=== PATIENT | male | born 1930 | race Caucasian/White ===

== ENCOUNTER 2017-03-22 17:37 | Inpatient (IN) | payer MEDICARE, OTHER ==
[~2017-03-22] VITALS: Ht 167.6 cm; Wt 90.4 kg
--- NOTE | ~2017-03-22 | EKG ---
PATIENT: WES MCMANUS UNIT #: [id number] Ventricular Rate: 93 BPM Atrial Rate: 93 BPM P-R Interval: 156 ms QRS Duration: 112 ms Q-T Interval: 384 ms QTC Calculation(Bezet): 477 ms P [place]: 23 degrees Calculated R [place]: -40 degrees Calculated T [place]: 92 degrees Diagnosis Line: Sinus rhythm with Premature atrial complexes Diagnosis Line: Left axis deviation Diagnosis Line: Incomplete left bundle branch block Diagnosis Line: Abnormal QRS-T angle, consider primary T wave Diagnosis Line: abnormality Diagnosis Line: Abnormal ECG Diagnosis Line: No previous ECGs available Diagnosis Line: Confirmed by VERENA LANDA MD ([id number]) on 03/23/2017 Diagnosis Line: 4:50:56 PM INTERPRETING MD: SYEDA BECERRA
--- NOTE | ~2017-03-22 | HP ---
Unit #: [id number] #: [id number] Patient: WES MCMANUS [id number] [address] [place], [place] [address] [id number] I MR#: [id number] NAME: WES MCMANUS ROOM: 462 Age: 87 Sex: M Admission Date: 03/22/2017 : 1930 Attending Physician: Marino Zhang M.D. Primary Care Physician: Ian Sanchez M.D. HISTORY AND PHYSICAL ADMISSION DIAGNOSES 1. GI bleed. 2. Diabetes. 3. History of prostate cancer. 4. History of previous GI bleed. HISTORY OF PRESENT ILLNESS Mr. Mcmanus is an 87-year-old gentleman, a patient of Dr. Ian Sanchez, who came to the emergency room with complaints of bloody stools since yesterday. The patient denies any dyspnea, shortness of air, lightheadedness, syncope. Denies any fever, chills. Denies any chest pain. Denies any headache or dizziness. Denies any abdominal pain, nausea or vomiting. States that he has been having these bloody stools for a couple days. REVIEW OF SYSTEMS A 12-point review of systems on this patient is basically negative except as above. The patient does have a history of previous GI bleed. PAST MEDICAL HISTORY Past medical history on this gentleman significant for history of, again, GI bleed, diabetes, obesity, prostate cancer. PAST SURGICAL HISTORY Significant for appendectomy and vasectomy. HOME MEDICATIONS He was taking a baby aspirin, metformin, trazodone, latanoprost, vitamin B, vitamin C, calcium with vitamin D, folic acid and garlic. ALLERGIES No known drug allergies. SOCIAL HISTORY No history of tobacco, alcohol or illicit drugs. FAMILY HISTORY Family history is unremarkable. PHYSICAL EXAMINATION GENERAL: The patient is an 87-year-old gentleman in no acute distress. VITAL SIGNS: BP 132/63, heart rate 82, respirations 17, temperature 98.3. HEENT: Head is atraumatic. Pupils are equal, round and reactive to light. Extraocular muscles intact. Oropharynx is clear. Unit #: [id number] #: [id number] Patient: WES MCMANUS NECK: Neck is supple. No masses. No JVD. No bruit. RESPIRATORY: Chest is clear to auscultation bilaterally. CARDIOVASCULAR: S1, S2. No murmurs. ABDOMEN: Abdomen is soft, nontender, nondistended. EXTREMITIES: Lower extremities have no cyanosis, clubbing or edema. NEUROLOGIC: Patient grossly intact. No focal deficits. LABS AND DIAGNOSTICS LABORATORY (from yesterday): H and H 11.3 and 33.7, white count 6.8. Chemistry - BUN and creatinine 21 and 1.1, blood glucose 124. ASSESSMENT AND PLAN 1. GI bleed. Started on IV PPI. Will check a STAT CBC. If hemoglobin drops more than 2 points, will transfer to ICU for closer monitoring. Discussed with Dr. Zhang, who is also evaluating the patient, and he plans to do an EGD first and then follow that with C-scope. 2. Diabetes. Will hold metformin. Treat with low sliding scale. 3. History of prostate cancer in the past. 4. GI and DVT prophylaxis. Continue PPI. Put on SCDs. Dictated by Christie Arora/tima TD: 03/24/2017 10:08 JOB #: [id number] HISTORY AND PHYSICAL Page 1 of 1 X Dannie Lucas MD X HISTORY AND PHYSICAL
--- NOTE | ~2017-03-22 | DS ---
Unit #: [id number] #: [id number] Patient: WES MCMANUS [id number] [address] [place], [place] [address] [id number] I MR#: [id number] NAME: WES MCMANUS ROOM: 462 Age: 87 Sex: M Admission Date: 03/22/2017 : 1930 Discharge Date: 03/26/2017 Attending Physician: Marino Zhang M.D. Primary Care Physician: Ian Sanchez M.D. DISCHARGE SUMMARY FINAL DIAGNOSES 1. Gastrointestinal bleed. 2. Anemia secondary to above. 3. Status post esophagogastroduodenoscopy, which shows mild gastritis. 4. Status post colonoscopy, which shows rectal arteriovenous malformation, status post cauterization by Dr. Zhang, and also showed diverticulosis. 5. Diabetes mellitus type 2. 6. History of prostate cancer. DISCHARGE MEDICATIONS 1. Protonix 40 mg p.o. daily. 2. Metformin 500 mg t.i.d. 3. Latanoprost drops 2.5 mL both eyes at bedtime. 4. Terazosin 20 mg each evening. 5. Garlic 1 capsule daily. 6. Aspirin 81 mg daily. 7. Calcium and vitamin D 1 tablet daily. 8. Folic acid 1 mg daily. 9. Vitamin B6 - 50 mg daily. 10. Thiamine 50 mg daily. 11. Vitamin C 60 mg daily. DIAGNOSTIC STUDIES LAB WORKUP ON DISCHARGE: Sodium 139, potassium 3.9, chloride 112, BUN 13, creatinine 1.3, calcium 7.7. CBC shows WBC 7.3, hemoglobin 7.4, hematocrit 32.3, platelet count of 204. HOSPITAL COURSE Mr. Wes Mcmanus is an 87-year-old male who was admitted by my colleague, Dr. Lucas, with GI bleed. The patient was admitted to med/surg unit. Dr. Zhang was consulted. The patient had a procedure done, which included EGD and colonoscopy, and findings were normal esophagus, mild gastritis, small lesion in the duodenal bulb, possible hypertrophic papilla versus polyp - left alone at this time, normal descending duodenum. The patient did have colonoscopy, and the findings of colonoscopy were several AVMs seen in the rectum that were cauterized. There was some active oozing from that area. The rest of the colon exam was no other bleeding site. There was extensive diverticulosis, and the patient also has internal hemorrhoid. The patient is doing well. The patient will receive 1 units of packed RBCs transfusion before discharge. He will be discharged on Protonix. The patient is doing well and wants to go home. Unit #: [id number] #: [id number] Patient: WES MCMANUS DISCHARGE PHYSICAL EXAMINATION VITAL SIGNS: Blood pressure is 98/65, respiratory rate 16, pulse 93, temperature 98. HEAD: Normocephalic. RESPIRATORY: Chest has fair air entry. CVS: Regular rhythm. ABDOMEN: Soft. No tenderness. DISCHARGE INSTRUCTIONS 1. The patient will be discharged home in stable condition after one unit of packed RBCs transfusion. 2. Follow up with primary care provider in 1 week. 3. CBC in 1 week. 4. Follow up with Dr. Zhang in 4 weeks. Dictated by... Christie Garzon/tima TD: 03/28/2017 08:52 JOB #: [id number] DISCHARGE SUMMARY Page 1 of 1 X Nina Busch MD X DISCHARGE SUMMARY
--- NOTE | ~2017-03-22 | OR ---
Unit #: [id number] #: [id number] Patient: WES MCMANUS [id number] [facility]. [place], [place] [address] [id number] I MR#: [id number] NAME: WES MCMANUS ROOM: 462 Date of Procedure: 03/25/2017 Admission Date: 03/22/2017 Surgeon: Marino Zhang M.D. : 1930 Attending Physician: Marino Zhang M.D. Primary Care Physician: Ian Sanchez M.D. OPERATIVE REPORT PROCEDURES PERFORMED Esophagogastroduodenoscopy to descending duodenum, colonoscopy with APC. INDICATIONS An 87-year-old gentleman, presented with significant GI bleeding, difficult to assess upper versus lower; anemia of acute blood loss; undergoing evaluation with upper endoscopy and colonoscopy. MEDICATIONS Versed 5 mg, fentanyl 12.5 mg IV. POSTOPERATIVE FINDINGS 1. Normal esophagus. 2. Mild gastritis. 3. Small lesion in the duodenal bulb, possible hypertrophied papilla versus polyp left alone at this time. 4. Normal descending duodenum. 5. Several AVMs seen in the rectum that were cauterized. There was some active oozing from this area. 6. Rest of the colon exam to cecum shows no other bleeding lesions. 7. Extensive diverticulosis. 8. Internal hemorrhoids. PLAN Follow up in the hospital for any continued bleeding or drop in hemoglobin and hematocrit. DESCRIPTION OF PROCEDURE The patient was explained of the procedure, risks, and benefits along with risks and benefits of conscious sedation. He was brought to the endoscopy. Versed and fentanyl were used. Scope was passed down the mouth and esophagus, stomach, duodenum, to distal duodenum. Findings as described. No biopsies taken. Gently, I pulled it out of the patient's mouth. He tolerated this part very well. At this time, he was turned around and repositioned for colonoscopy. Rectal exam was done, which was normal. Colonoscope was lubricated, passed through the rectum, advanced under direct vision all the way to the cecum. Cecum was identified by ileocecal valve and appendiceal orifice. Prep was adequate with extensive lavaging. Extensive diverticulosis was seen, much more so on the left colon. Rectum shows some oozing of blood Unit #: [id number] #: [id number] Patient: WES MCMANUS and fresh bleeding from multiple AVMs right above the dentate line. APC cautery was carried out successfully. Gently, the scope was pulled out. He tolerated it well. No major complications were seen. Dictated by... Christie Rojas/yadi TD: 03/25/2017 12:19 JOB #: [id number] CC: Marino Zhang M.D. OPERATIVE REPORT Page 1 of 1 X Marino Zhang MD X PROCEDURE OPERATIVE NOTE
[~2017-03-22 17:37] MED LIST: ASPIRIN81 M2 PO; CALCIUM + D 6001 TA1 PO; FOLIC ACID1 MG PO; GARLIC1 CAP PO; LATANOPROST2.5 ML OP; METFORMIN HCL500 M1 PO; PROTONIX PO; TERAZOSIN HCL10 MG PO; VITAMIN B-150 MG PO; VITAMIN B650 M1 PO; VITAMIN C60 MG PO; VITAMIN E100 UNIT PO
[2017-03-22 18:45] LABS: BASOPHIL# 0.1 X10e3 (0-0.3); BASOPHIL% 0.9 % (0-2.5); EOSINOPHIL# 0.1 X10e3 (0-0.7); EOSINOPHIL% 2.1 % (0.0-7.0); HEMATOCRIT 33.7 % (38.0-50.0); HEMOGLOBIN 11.3 gm/dL (13.0-16.0); LYMPHOCYTE# 0.7 X10e3 (1.0-3.5); LYMPHOCYTE% 10.6 % (17.0-45.0); MEAN CELL VOLUME 92.2 FL (83-96); MEAN CORPUSCULAR HEMOGLOBIN 30.8 PG (28-34); MEAN CORPUSCULAR HGB CONC 33.4 g/dL (30-36); MEAN PLATELET VOLUME 7.8 FL (6.5-11.5); MONOCYTE# 0.6 X10e3 (0-1.0); MONOCYTE% 8.6 % (3.0-12.0); NEUTROPHIL# 5.3 X10e3 (1.5-7.1); NEUTROPHIL% 77.8 % (40-75); PLATELET COUNT 297 X10e3 (140-420); RED BLOOD COUNT 3.66 X10e (3.90-5.60); RED CELL DISTRIBUTION WIDTH 14.8 % (11.0-15.5); WHITE BLOOD COUNT 6.8 X10e3 (4.0-10.5)
[2017-03-22 18:47] LABS: DIFF IND NO
[2017-03-22 18:56] LABS: PROTHROMBIN TIME (PATIENT) 11.1 SECONDS (10.0-11.7)
[2017-03-22 19:06] LABS: ALBUMIN SERUM 3.9 g/dL (3.5-5.0); ALKALINE PHOSPHATASE 73 U/L (32-92); ALT (SGPT) 12 U/L (10-40); AST (SGOT) 16 U/L (10-42); BILIRUBIN,TOTAL 0.7 mg/dL (0.2-2.0); BLOOD UREA NITROGEN 21 mg/dL (9-23); BUN/CREATININE RATIO 19.09; CALCIUM SERUM 8.9 mg/dL (8.4-10.2); CARBON DIOXIDE 25 mmol/L (22-31); CHLORIDE 103 mmol/L (100-111); CREATININE SERUM 1.1 mg/dL (0.6-1.4); GLOM FILT RATE Estimated 59.6 mL/min (>60); GLUCOSE FASTING 124 mg/dL (70-110); LIPASE 12 U/L (22-51); POTASSIUM 4.2 mmol/L (3.5-5.1); SODIUM 140 mmol/L (135-145)
[2017-03-22 19:07] LABS: BILIRUBIN, DIRECT <0.1 mg/dL (0.0-0.2); BILIRUBIN,INDIRECT 0.6 mg/dL (0.0-0.9)
[2017-03-23 20:00] LABS: BASOPHIL% 0.4 % (0-2.5); EOSINOPHIL# 0.1 X10e3 (0-0.7); EOSINOPHIL% 1.5 % (0.0-7.0); HEMATOCRIT 26.5 % (38.0-50.0); LYMPHOCYTE# 0.9 X10e3 (1.0-3.5); LYMPHOCYTE% 12.9 % (17.0-45.0); MEAN CELL VOLUME 92.2 FL (83-96); MEAN CORPUSCULAR HEMOGLOBIN 31.7 PG (28-34); MEAN CORPUSCULAR HGB CONC 34.4 g/dL (30-36); MEAN PLATELET VOLUME 7.4 FL (6.5-11.5); MONOCYTE# 0.7 X10e3 (0-1.0); NEUTROPHIL# 4.9 X10e3 (1.5-7.1); NEUTROPHIL% 74.2 % (40-75); PLATELET COUNT 251 X10e3 (140-420); RED BLOOD COUNT 2.88 X10e (3.90-5.60); RED CELL DISTRIBUTION WIDTH 14.4 % (11.0-15.5); WHITE BLOOD COUNT 6.7 X10e3 (4.0-10.5)
[2017-03-23 20:03] LABS: DIFF IND NO; HEMOGLOBIN 9.1 gm/dL (13.0-16.0)
[2017-03-24 03:40] LABS: BASOPHIL% 0.4 % (0-2.5); EOSINOPHIL# 0.1 X10e3 (0-0.7); EOSINOPHIL% 2.1 % (0.0-7.0); HEMATOCRIT 25.5 % (38.0-50.0); HEMOGLOBIN 8.4 gm/dL (13.0-16.0); LYMPHOCYTE# 0.9 X10e3 (1.0-3.5); LYMPHOCYTE% 14.4 % (17.0-45.0); MEAN CELL VOLUME 92.9 FL (83-96); MEAN CORPUSCULAR HEMOGLOBIN 30.6 PG (28-34); MEAN CORPUSCULAR HGB CONC 32.9 g/dL (30-36); MONOCYTE# 0.7 X10e3 (0-1.0); NEUTROPHIL# 4.3 X10e3 (1.5-7.1); NEUTROPHIL% 72.1 % (40-75); PLATELET COUNT 236 X10e3 (140-420); RED BLOOD COUNT 2.75 X10e (3.90-5.60); RED CELL DISTRIBUTION WIDTH 14.4 % (11.0-15.5)
[2017-03-24 03:50] LABS: DIFF IND NO
[2017-03-24 04:03] LABS: ALBUMIN SERUM 3.1 g/dL (3.5-5.0); BILIRUBIN,TOTAL 0.4 mg/dL (0.2-2.0); BUN/CREATININE RATIO 17.5; CREATININE SERUM 1.2 mg/dL (0.6-1.4); GLOM FILT RATE Estimated 53.7 mL/min (>60); POTASSIUM 3.6 mmol/L (3.5-5.1); PROTEIN TOTAL SERUM 5.8 g/dL (6.0-8.3)
[2017-03-24 16:45] LABS: HEMATOCRIT 29.7 % (38.0-50.0); HEMOGLOBIN 9.8 gm/dL (13.0-16.0)
[2017-03-25 03:32] LABS: BASOPHIL% 0.3 % (0-2.5); EOSINOPHIL# 0.1 X10e3 (0-0.7); EOSINOPHIL% 1.7 % (0.0-7.0); HEMATOCRIT 25.6 % (38.0-50.0); HEMOGLOBIN 8.5 gm/dL (13.0-16.0); LYMPHOCYTE# 0.8 X10e3 (1.0-3.5); LYMPHOCYTE% 11.9 % (17.0-45.0); MEAN CELL VOLUME 93.9 FL (83-96); MEAN CORPUSCULAR HEMOGLOBIN 31.3 PG (28-34); MEAN CORPUSCULAR HGB CONC 33.4 g/dL (30-36); MEAN PLATELET VOLUME 7.9 FL (6.5-11.5); MONOCYTE# 0.9 X10e3 (0-1.0); MONOCYTE% 12.5 % (3.0-12.0); NEUTROPHIL% 73.6 % (40-75); PLATELET COUNT 221 X10e3 (140-420); RED BLOOD COUNT 2.73 X10e (3.90-5.60); RED CELL DISTRIBUTION WIDTH 14.6 % (11.0-15.5); WHITE BLOOD COUNT 6.8 X10e3 (4.0-10.5)
[2017-03-25 03:33] LABS: DIFF IND NO
[2017-03-26 07:44] LABS: BASOPHIL% 0.3 % (0-2.5); EOSINOPHIL% 0.7 % (0.0-7.0); HEMATOCRIT 22.3 % (38.0-50.0); HEMOGLOBIN 7.4 gm/dL (13.0-16.0); LYMPHOCYTE# 0.7 X10e3 (1.0-3.5); LYMPHOCYTE% 9.9 % (17.0-45.0); MEAN CELL VOLUME 93.7 FL (83-96); MEAN CORPUSCULAR HGB CONC 33.1 g/dL (30-36); MEAN PLATELET VOLUME 7.7 FL (6.5-11.5); MONOCYTE# 1.1 X10e3 (0-1.0); NEUTROPHIL# 5.4 X10e3 (1.5-7.1); NEUTROPHIL% 74.1 % (40-75); PLATELET COUNT 204 X10e3 (140-420); RED BLOOD COUNT 2.38 X10e (3.90-5.60); RED CELL DISTRIBUTION WIDTH 14.6 % (11.0-15.5); WHITE BLOOD COUNT 7.3 X10e3 (4.0-10.5)
[2017-03-26 07:45] LABS: DIFF IND YES
[2017-03-26 08:10] LABS: ANISOCYTOSIS SL; PLATELET ESTIMATE NORMAL (NORMAL)
[2017-03-26 08:23] LABS: ALBUMIN SERUM 2.6 g/dL (3.5-5.0); BILIRUBIN,TOTAL 0.6 mg/dL (0.2-2.0); CALCIUM SERUM 7.7 mg/dL (8.4-10.2); CREATININE SERUM 1.3 mg/dL (0.6-1.4); GLOM FILT RATE Estimated 48.7 mL/min (>60); POTASSIUM 3.9 mmol/L (3.5-5.1); PROTEIN TOTAL SERUM 4.9 g/dL (6.0-8.3)
[2017-03-26] MEDS ORDERED: PROTONIX PO (16:57)
== END 2017-03-26 19:58 | disposition home or self-care (01) | DRG 378 ==
LOC: CED 17:37 → C4C 19:40 → CEDOF 20:23 → CED 20:23 → CEDOF 22:55 → C4C 22:55 → CED 23:44 → C4C 23:44
PROVIDERS: Internal Medicine; Physician Assistant Medical
PROC: 0D5P8ZZ Destruction of Rectum, Via Natural or Artificial Opening Endoscopic (ICD-10-PCS; principal; 2017-03-25 06:43)
PROC: 0DJ08ZZ Inspection of Upper Intestinal Tract, Via Natural or Artificial Opening Endoscopic (ICD-10-PCS; 2017-03-25 06:43)
PROC: 30233N1 Transfusion of Nonautologous Red Blood Cells into Peripheral Vein, Percutaneous Approach (ICD-10-PCS; 2017-03-26)
DX: K55.21 Angiodysplasia of colon with hemorrhage (principal); D62 Acute posthemorrhagic anemia; E11.9 Type 2 diabetes mellitus without complications; K29.70 Gastritis, unspecified, without bleeding; K57.90 Diverticulosis of intestine, part unspecified, without perforation or abscess without bleeding; Z85.46 Personal history of malignant neoplasm of prostate; K64.8 Other hemorrhoids; E66.9 Obesity, unspecified; Z79.82 Long term (current) use of aspirin; Z79.84 Long term (current) use of oral hypoglycemic drugs
CPT/HCPCS: 36415; 80048; 80053; 80076; 82947; 83690; 85014; 85018; 85025; 85610; 85730; 86850; 86900; 86901; 86923; 93005; 99284; C9113; J1815; J2250; J3010; P9016

== ENCOUNTER 2017-03-27 12:52 | Observation (INO) | payer MEDICARE, OTHER ==
[~2017-03-27] VITALS: Ht 167.6 cm; Wt 80.7 kg
--- NOTE | ~2017-03-27 | CR63 ---
[facility] A Service of [facility] RADIOLOGY TEXT RESULTS PATIENT: WES MCMANUS LOCATION: C2A 219-01 : [birth year] UNIT #: [id number] AGE: [address]: Nina Busch MD SEX: M ORDER DR: [id number] [facility] [address] [place], [place] [address] [id number] I MR#: [id number] Acc #: [id number] NAME: WES MCMANUS : 1930 SEX: M STUDY DATE/TIME: 03/29/2017 7:44 UNIT: A ROOM: 219 STUDY DESCRIPTION: CR Chest 2 View Attending Physician: Nina Busch M.D. Referring Physician: Ian Sanchez M.D. Ordering Physician: Dannie Lucas M.D. Primary Care Physician: Ian Sanchez M.D. MEDICAL IMAGING REPORT This report is preliminary unless electronic signature is present EXAM PA and lateral radiographs of the chest HISTORY Edema. History of CHF. FINDINGS PA and lateral radiographs of the chest presented. Comparison 08/27/2012. Degenerative changes in the spine. No acute-appearing bony abnormality. Stable mild cardiac enlargement. The lungs are moderately well inflated. Borderline vascular prominence. Correlate with any clinical indications of borderline vascular congestion. There is no francisco javier pulmonary edema at this time. No pleural effusion or pneumothorax. No suspicious nodule. Dictated by... Wes Garcia M.D. THIS IS AN ELECTRONICALLY VERIFIED REPORT Wes Garcia M.D. at 03/30/2017 5:54 PM ALBERT/jayde TD: 03/29/2017 09:54 JOB #: [id number] MEDICAL IMAGING REPORT Page 1 of 1 COPY
--- NOTE | ~2017-03-27 | HP ---
Unit #: [id number] #: [id number] Patient: WES MCMANUS [id number] [address] [place], [place] [address] [id number] I MR#: [id number] NAME: WES MCMANUS ROOM: 219 Age: 87 Sex: M Admission Date: 03/27/2017 : 1930 Attending Physician: Nina Bsuch M.D. Referring Physician: Ian Sanchez M.D. Primary Care Physician: Ian Sanchez M.D. HISTORY AND PHYSICAL ADMISSION DIAGNOSES 1. Lower extremity edema with inability to ambulate. 2. History of recent gastrointestinal bleed. 3. Diabetes type 2. 4. Obesity. 5. History of prostate cancer. HISTORY OF PRESENT ILLNESS Mr. Mcmanus is an 87-year-old gentleman well known to our service secondary to a recent admission for a GI bleed and symptomatic anemia. He was evaluated by GI, underwent the EGD and c-scope, transfused, was stabilized and discharged on March 26. However, he comes back with the complaints of lower extremity edema and an inability to ambulate. Initial evaluation with the lower extremity ultrasound was negative. Two-D echo is currently pending. Patient had been gently diuresed with a low dose of furosemide and currently his edema is better. However, he still cannot ambulate. He denies any active chest pain, shortness of air or dyspnea, fever, chills, nausea, vomiting, diarrhea or abdominal pain. REVIEW OF SYSTEMS A 12-point review of systems on this patient is basically negative except as above. PAST MEDICAL HISTORY Past medical history is significant for a history GI bleed, diabetes type 2, obesity and prostate cancer. PAST SURGICAL HISTORY Past surgical history is significant for recent scopes, also appendectomy and a vasectomy. HOME MEDICATIONS The home medications include aspirin and metformin, terazosin, latanoprost, vitamin B1, vitamin B6, vitamin C, calcium with vitamin D, folic acid, garlic and Protonix. SOCIAL HISTORY No current history of tobacco, alcohol or illicit drugs. FAMILY HISTORY Unremarkable. ALLERGIES Unit #: [id number] #: [id number] Patient: WES MCMANUS No known drug allergies. PHYSICAL EXAMINATION GENERAL: On the physical exam the patient is a very pleasant 87-year-old gentleman not in acute distress. VITAL SIGNS: BP 122/58, heart rate 97, respirations 20, temperature 99.2. HEENT: Head is atraumatic. Pupils equal, round and reactive to light and accommodation. Extraocular muscles intact. Oropharynx clear. NECK: Neck is supple. No masses. No JVD. No bruits. CHEST: Chest is diminished bilaterally in the bases. ABDOMEN: Abdomen is soft, nontender and nondistended. EXTREMITIES: Lower extremities without any cyanosis, clubbing or edema. NEUROLOGIC: Patient without any focal deficits, alert and oriented and answering questions appropriately. DIAGNOSTIC STUDIES LABORATORY: As above. Hemoglobin and hematocrit 8.5 and 25.2, white count 7.2, blood glucose 135, BUN and creatinine 16 and 1.1. ASSESSMENT AND PLAN 1. Lower extremity edema, improved with the diuretics: Followup on 2D echo, currently results are pending. 2. History of recent GI bleed: Continue PPI. Monitor hemoglobin and hematocrit. 3. Diabetes type 2: Covered with low sliding scale. Will check hemoglobin A1C. 4. History of prostate cancer. 5. Obesity. 6. GI and DVT prophylaxis with some PPI and SCDs. 7. Low grade fever 99.2: Will check chest x-ray. Dictated by Christie Arora/dirk TD: 03/28/2017 20:44 JOB #: [id number] HISTORY AND PHYSICAL Page 1 of 1 X Dannie Lucas MD X HISTORY AND PHYSICAL
--- NOTE | ~2017-03-27 | US84 ---
[id number] [facility]. [facility] [address] [facility]. [place], [place] [address] [id number] I MR#: [id number] Acc #: [id number] NAME: WES MCMANUS : 1930 SEX: M STUDY DATE/TIME: 03/27/2017 13:48 UNIT: C2A ROOM: 219 STUDY DESCRIPTION: US LE Veins Complete Bahman Stdy Attending Physician: Nina Busch M.D. Referring Physician: Ian Sanchez M.D. Ordering Physician: Ed Doc Christie Swain Primary Care Physician: Ian Sanchez M.D. MEDICAL IMAGING REPORT This report is preliminary unless electronic signature is present EXAM Bilateral lower extremity venous duplex 03/27/2017 HISTORY Bilateral lower extremity pain for 1 day, pain in feet with pressure and weightbearing. Diabetes. Evaluate for deep vein thrombosis. TECHNIQUE Venous ultrasound examination of both lower extremities was performed using grayscale, spectral Doppler and color flow Doppler imaging. FINDINGS The examination is negative. There is no evidence of deep venous thrombus from the groin to the lower calf bilaterally. Visualized greater saphenous veins are also patent. IMPRESSION Negative examination. No evidence of lower extremity deep venous thrombosis. Dictated by... Samson Baumann M.D. THIS IS AN ELECTRONICALLY VERIFIED REPORT Samson Baumann M.D. at 03/28/2017 2:21 PM ANA/patricio TD: 03/27/2017 22:18 JOB #: [id number] MEDICAL IMAGING REPORT Page 1 of 1 COPY
--- NOTE | ~2017-03-27 | DS ---
Unit #: [id number] #: [id number] Patient: WES MCMANUS [id number] [address] [address] [id number] I MR#: [id number] NAME: WES MCMANUS ROOM: 219 Age: 87 Sex: M Admission Date: 03/27/2017 : 1930 Discharge Date: 03/29/2017 Attending Physician: Nina Busch M.D. Referring Physician: Ian Sanchez M.D. Primary Care Physician: Ian Sanchez M.D. DISCHARGE SUMMARY DISCHARGE DIAGNOSES 1. Lower extremity edema, now which have resolved, status post gentle diuresis with some Lasix. 2. History of recent gastrointestinal bleed. 3. Severe deconditioning. 4. Diabetes type 2. 5. History of prostate cancer. DISCHARGE MEDICATIONS 1. Metformin 500 mg p.o. t.i.d. 2. Xalatan eyedrops at bedtime. 3. Hytrin 10 mg q.h.s. 4. Garlic capsules daily. 5. Aspirin 200 mg daily. 6. Protonix 40 mg b.i.d. 7. Cosamin vitamin D daily. 8. Folic acid 1 mg daily. 9. Pyridoxine 50 mg daily. 10. Thiamine 50 mg daily. 11. Isosorbide acid, vitamin C 500 mg p.o. daily. DISPOSITION Going to SNU at [facility]. Follow up with the primary care at the SNU. LABS AND DIAGNOSTICS AND PROCEDURES ON THIS HOSPITAL STAY 2D echo shows EF of 50 to 55%. Lower extremity ultrasound negative for DVT. Chest x-ray, no acute-appearing bony abnormalities. Lungs moderately well inflamed. There is no francisco javier pulmonary edema at this time. No pleural effusions or pneumothorax. No suspicious nodule. DISCHARGE DATA H and H 7.9 and 23.5. BUN and creatinine 21 and 1.1, blood sugar 128. HISTORY OF PRESENT HOSPITAL STAY Please refer to H and P done by me for initial presentation on this gentleman. ACTIVE PROBLEMS AND DIAGNOSES 1. Lower extremity edema which has resolved with status post gentle diuresis with the p.o. Lasix. Status post 2D echo as above with normal EF. 2. History of recent gastrointestinal bleed, continue BI-PPI. 3. Severe deconditioning with inability to ambulate, getting discharged to a SNU at the [facility]. Continue PT/OT. Unit #: [id number] #: [id number] Patient: WES MCMANUS 4. Diabetes type 2, continue metformin. 5. History of prostate cancer in the past. DISPOSITION As above. DISCHARGE MEDICATIONS As above. STAT * RESULT Dictated by... Dannie Lucas M.D. MOHINDER/prabha TD: 03/29/2017 23:51 JOB #: [id number] DISCHARGE SUMMARY Page 1 of 1 X Dannie Lucas MD X DISCHARGE SUMMARY
[2017-03-27 13:53] LABS: BASOPHIL% 0.2 % (0-2.5); EOSINOPHIL% 0.3 % (0.0-7.0); LYMPHOCYTE# 0.6 X10e3 (1.0-3.5); LYMPHOCYTE% 6.1 % (17.0-45.0); MEAN CELL VOLUME 91.7 FL (83-96); MEAN CORPUSCULAR HGB CONC 34.9 g/dL (30-36); MEAN PLATELET VOLUME 8.2 FL (6.5-11.5); MONOCYTE# 1.2 X10e3 (0-1.0); MONOCYTE% 11.7 % (3.0-12.0); NEUTROPHIL# 8.5 X10e3 (1.5-7.1); NEUTROPHIL% 81.7 % (40-75); PLATELET COUNT 230 X10e3 (140-420); RED BLOOD COUNT 2.94 X10e (3.90-5.60); RED CELL DISTRIBUTION WIDTH 14.7 % (11.0-15.5); WHITE BLOOD COUNT 10.4 X10e3 (4.0-10.5)
[2017-03-27 13:57] LABS: DIFF IND NO; HEMOGLOBIN 9.4 gm/dL (13.0-16.0)
[2017-03-27 14:20] LABS: CALCIUM SERUM 8.3 mg/dL (8.4-10.2); CREATININE SERUM 1.2 mg/dL (0.6-1.4); GLOM FILT RATE Estimated 53.7 mL/min (>60); POTASSIUM 3.8 mmol/L (3.5-5.1)
[2017-03-28 08:17] LABS: HEMATOCRIT 25.2 % (38.0-50.0); HEMOGLOBIN 8.4 gm/dL (13.0-16.0); MEAN CELL VOLUME 92.6 FL (83-96); MEAN CORPUSCULAR HEMOGLOBIN 31.1 PG (28-34); MEAN CORPUSCULAR HGB CONC 33.6 g/dL (30-36); MEAN PLATELET VOLUME 8.3 FL (6.5-11.5); RED BLOOD COUNT 2.72 X10e (3.90-5.60); RED CELL DISTRIBUTION WIDTH 14.5 % (11.0-15.5); WHITE BLOOD COUNT 7.2 X10e3 (4.0-10.5)
[2017-03-28 08:38] LABS: BUN/CREATININE RATIO 14.54; CALCIUM SERUM 7.9 mg/dL (8.4-10.2); CREATININE SERUM 1.1 mg/dL (0.6-1.4); GLOM FILT RATE Estimated 59.6 mL/min (>60); POTASSIUM 3.7 mmol/L (3.5-5.1)
[2017-03-29 06:17] LABS: HEMATOCRIT 23.5 % (38.0-50.0); HEMOGLOBIN 7.9 gm/dL (13.0-16.0); MEAN CELL VOLUME 91.6 FL (83-96); MEAN CORPUSCULAR HEMOGLOBIN 30.6 PG (28-34); MEAN CORPUSCULAR HGB CONC 33.4 g/dL (30-36); MEAN PLATELET VOLUME 7.5 FL (6.5-11.5); RED BLOOD COUNT 2.56 X10e (3.90-5.60); RED CELL DISTRIBUTION WIDTH 14.2 % (11.0-15.5)
[2017-03-29 07:10] LABS: BUN/CREATININE RATIO 19.09; CREATININE SERUM 1.1 mg/dL (0.6-1.4); GLOM FILT RATE Estimated 59.6 mL/min (>60); POTASSIUM 3.6 mmol/L (3.5-5.1)
== END 2017-03-30 02:00 ==
LOC: CED 12:52 → CEDOF 17:05 → CED 17:05 → C2A 17:05 → CEDOF 17:05 → CED 18:12 → CEDOF 18:12 → C2A 18:27
PROVIDERS: Emergency Medicine; Hospitalist; Physician Assistant Medical
DX: R60.9 Edema, unspecified (principal); E11.9 Type 2 diabetes mellitus without complications; Z79.84 Long term (current) use of oral hypoglycemic drugs; I08.3 Combined rheumatic disorders of mitral, aortic and tricuspid valves; E66.9 Obesity, unspecified; Z68.28 Body mass index [BMI] 28.0-28.9, adult; Z79.82 Long term (current) use of aspirin; Z79.899 Other long term (current) drug therapy; Z85.46 Personal history of malignant neoplasm of prostate; Z90.49 Acquired absence of other specified parts of digestive tract; Z98.52 Vasectomy status
CPT/HCPCS: 36415; 71020; 80048; 82947; 83036; 83880; 85025; 85027; 93306; 93970; 97110; 97161; 97530; 99285; G0378; G8978-GP; G8979-GP; J1815